=== PATIENT | female | born 1945 | race Caucasian/White ===

== ENCOUNTER → 2017-11-05 | Outpatient (CLI) | payer MEDICARE ==
[~2017-11-05] MED LIST: AMLO2.5T PO; DIVA-76 PO; DOXY100C2 PO; ESTR0.5T PO; HYDR200T4 PO; LEVO125T11 PO; MEDR2.5T6 PO; ONDA4TAB10 PO; PANT40TA25 PO; PRED5TAB PO; PRIM50TA29 PO; SUCR1TAB2 PO; TRAM50TA4 PO
== END | disposition home or self-care (01) ==
LOC: LAB 14:35
PROVIDERS: ATTEND Student in an Organized Health Care Education/Training Program
DX: G43.109 Migraine with aura, not intractable, without status migrainosus (principal)
CPT/HCPCS: 36415; 82565; 84520

== ENCOUNTER → 2017-11-14 | Outpatient (CLI) | payer MEDICARE ==
[~2017-11-14] MED LIST changes: +GADOBENATE DIMEGLUMINE 10 ML IV ONE
== END | disposition home or self-care (01) ==
LOC: RAH 07:25
PROVIDERS: ATTEND Student in an Organized Health Care Education/Training Program
DX: G31.9 Degenerative disease of nervous system, unspecified (principal)
CPT/HCPCS: 70553; A9577

== ENCOUNTER → 2017-12-11 | Outpatient (CLI) | payer OTHER ==
[~2017-12-11] MED LIST changes: -GADOBENATE DIMEGLUMINE 10 ML IV ONE
== END | disposition home or self-care (01) ==
LOC: OIH 13:22
PROVIDERS: ATTEND Internal Medicine Cardiovascular Disease
DX: Z13.6 Encounter for screening for cardiovascular disorders (principal)
CPT/HCPCS: 75571

== ENCOUNTER → 2018-06-06 | Outpatient (CLI) | payer MEDICARE ==
[~2018-06-06] VITALS: Ht 165.1 cm; Wt 51.7 kg
[~2018-06-06] MED LIST changes: -AMLO2.5T PO; +AMLO2.5T4 PO; +REGADENOSON 0.4 MG/5 ML PF SYG IVP SCH
== END | disposition home or self-care (01) ==
LOC: SHCH 07:31
PROVIDERS: ATTEND Internal Medicine Cardiovascular Disease
DX: R06.00 Dyspnea, unspecified (principal); I25.10 Atherosclerotic heart disease of native coronary artery without angina pectoris
CPT/HCPCS: 78452; 93017; 96374; A9500 ×2; J2785

== ENCOUNTER → 2018-06-12 | Outpatient (CLI) | payer MEDICARE ==
[~2018-06-12] MED LIST changes: +ALBUTEROL SULFATE 0.083% 2.5 MG/3 ML INH IH ONE; +AMLO2.5T3 PO; -AMLO2.5T4 PO; -REGADENOSON 0.4 MG/5 ML PF SYG IVP SCH
== END | disposition home or self-care (01) ==
LOC: RESP 10:03
PROVIDERS: ATTEND Internal Medicine Cardiovascular Disease
DX: R06.00 Dyspnea, unspecified (principal)
CPT/HCPCS: 94060; 94727; 94729

== ENCOUNTER → 2022-10-03 | Outpatient (CLI) | payer MEDICARE ==
[~2022-10-03] MED LIST changes: -ALBUTEROL SULFATE 0.083% 2.5 MG/3 ML INH IH ONE; -AMLO2.5T3 PO; +AMLO2.5T4 PO; -DOXY100C2 PO; +DOXY100C5 PO; -PANT40TA25 PO; +PANT40TA54 PO
== END | disposition home or self-care (01) ==
LOC: SHCH 07:33
PROVIDERS: ATTEND Internal Medicine Cardiovascular Disease
DX: I73.9 Peripheral vascular disease, unspecified (principal)
CPT/HCPCS: 93925

== ENCOUNTER 2023-01-26 06:56 | Day surgery (SDC) | payer MEDICARE ==
[2023-01-24 16:02] LABS: BASOPHILS % (AUTO) 1.3 % (0.0-5.0); EOSINOPHILS % (AUTO) 6.3 % (0.0-8.0); HEMATOCRIT 37.5 % (36-48); LYMPHOCYTES % (AUTO) 19.8 % (21.0-51.0); MEAN CORPUSCULAR HEMOGLOBIN 28.9 pg (27.0-33.0); MEAN CORPUSCULAR VOLUME 90.4 fL (79-99); NEUTROPHILS % (AUTO) 66.4 % (40.0-77.0); PLATELET COUNT (AUTO) 363 K/uL (130-400); RED BLOOD CELL COUNT(AUTO) 4.15 MIL/uL (4.00-5.50); RED CELL DISTRIBUTION WIDTH 13.6 % (11.0-15.5)
[2023-01-24 16:12] VITALS: BP 174/72
[2023-01-24 16:17] LABS: CREATININE 1.1 mg/dL (0.5-1.5)
[2023-01-24 16:18] LABS: INR 0.93 (0.85-1.15); PROTHROMBIN TIME 10.7 SEC (9.6-11.6)
[2023-01-24 16:19] LABS: PARTIAL THROMBOPLASTIN TIME 28.3 SEC (26.3-35.5)
[2023-01-24 16:33] LABS: B-TYPE NATRIURETIC PEPTIDE 694 pg/mL (0-100)
[2023-01-26] VITALS (14 sets, daily range): BP systolic 111–171; BP diastolic 60–93
[~2023-01-26] VITALS: Ht 165.1 cm; Wt 49.9 kg
[~2023-01-26 06:56] MED LIST changes: +ALBUHFA IH; -AMLO2.5T4 PO; +BACL5TAB PO; +BETA15C TP; +CALC-1125 PO; +CHOL100040 PO; +DIPH25CA85 PO; -DIVA-76 PO; +DOCU100T PO; -DOXY100C5 PO; -ESTR0.5T PO; +FIORIT PO; -HYDR200T4 PO; +HYDR200T75 PO; +LEVO112C4 PO; -LEVO125T11 PO; +LOSA25TA41 PO; -MEDR2.5T6 PO; +METO25TA6 PO; +MULT-1367 PO; -ONDA4TAB10 PO; +PRED1TAB PO; -PRED5TAB PO; -SUCR1TAB2 PO
[2023-01-26] MEDS ORDERED: 0.9%NACL 1000ML 1,000 ML IV ONE (07:26)
[2023-01-26 07:33] LABS: CREATININE 1.2 mg/dL (0.5-1.5); POTASSIUM 4.1 mmol/L (3.5-5.1)
[2023-01-26] MEDS ORDERED: NITROGLYCERIN 50MG VIAL ONE (08:56)
[2023-01-26] MEDS ORDERED: HEPARIN 10,000 UNIT/10ML (1,000 UNIT/ML) VIAL ONE (08:56)
[2023-01-26] MEDS ORDERED: LIDOCAINE HCL 400MG/20ML VIAL ONE (08:56)
[2023-01-26] MEDS ORDERED: IODIXANOL 320 MG/ML 100 ML VIAL ONE (08:56)
[2023-01-26] MEDS ORDERED: MIDAZOLAM HCL 1 MG/ML 2ML VIAL ONE ×2 (12:20→14:15)
[2023-01-26] MEDS ORDERED: FENTANYL CITRATE PF 50 MCG/1 ML 2ML VIAL ONE ×2 (12:21→14:15)
[2023-01-26] MEDS ORDERED: NICARDIPINE 25MG INJ IV ONE (13:42)
[2023-01-26] MEDS ORDERED: HYDRALAZINE 20MG/ML VIAL ONE (14:09)
[2023-01-26] MEDS ORDERED: ASPIRIN 325MG EC TAB PO ONE (14:28)
[2023-01-26] MEDS ORDERED: CLOPIDOGREL 300MG TAB ONE (14:28)
[2023-01-26] MEDS ORDERED: 0.9%NACL 1000ML 1,000 ML IV SCH (15:00)
[2023-01-26] MEDS ORDERED: ACETAMINOPHEN 325 MG TAB ONE (16:14)
[2023-01-26] MEDS ORDERED: ACETAMINOPHEN 325 MG TAB PO PRN (17:30)
[2023-01-26] MEDS ORDERED: ASPI-1012 PO (18:47)
== END 2023-01-26 19:17 | disposition home or self-care (01) ==
LOC: DAH 06:56
PROVIDERS: ATTEND Internal Medicine Cardiovascular Disease
DX: I70.211 Atherosclerosis of native arteries of extremities with intermittent claudication, right leg (principal); M35.00 Sjogren syndrome, unspecified; I73.00 Raynaud's syndrome without gangrene; I10 Essential (primary) hypertension; I25.10 Atherosclerotic heart disease of native coronary artery without angina pectoris; E78.5 Hyperlipidemia, unspecified; M06.9 Rheumatoid arthritis, unspecified; Z79.01 Long term (current) use of anticoagulants; Z88.8 Allergy status to other drugs, medicaments and biological substances; Z88.2 Allergy status to sulfonamides; Z95.5 Presence of coronary angioplasty implant and graft; Z87.891 Personal history of nicotine dependence; Z98.890 Other specified postprocedural states; Z90.49 Acquired absence of other specified parts of digestive tract; Z82.49 Family history of ischemic heart disease and other diseases of the circulatory system
CPT/HCPCS: 80048 ×2; 83880 ×2; 85025; 85610; 85730; 36415 ×2; 71045; 93005; 75716; 85347; C9766; C1887 ×2; C1725; C1894 ×2; C1769 ×4; C1760; C1893; C1724; C2623; J3010 ×2; J3490 ×3; J7030; J0360; J1644 ×3; J2250 ×2; Q9967; A4215; A4222; A4221; A4663; A4216; A4606; A4223 ×3; 99156; 99157

== ENCOUNTER → 2023-04-09 | Outpatient (CLI) | payer MEDICARE ==
[~2023-04-09] MED LIST changes: +ASPI-1012 PO
== END | disposition home or self-care (01) ==
LOC: OIH 10:18
PROVIDERS: ATTEND Physician Assistant Medical
DX: K59.00 Constipation, unspecified (principal); R93.3 Abnormal findings on diagnostic imaging of other parts of digestive tract
CPT/HCPCS: 74018

== ENCOUNTER → 2023-10-25 | Outpatient (CLI) | payer MEDICARE ==
[2023-10-25 12:46] LABS: CHOLESTEROL 253 mg/dL (<200); HDL CHOLESTEROL 58 mg/dL (35-85); LDL DIRECT 146 mg/dL (0-99); TRIGLYCERIDES 192 mg/dL (30-200)
== END | disposition home or self-care (01) ==
LOC: LAB 10:26
PROVIDERS: ATTEND Internal Medicine Cardiovascular Disease
DX: I10 Essential (primary) hypertension (principal)
CPT/HCPCS: 36415; 80061

== ENCOUNTER → 2023-12-07 | Outpatient (CLI) | payer MEDICARE ==
[2023-12-07 12:17] LABS: BASOPHILS # (AUTO) 0.13 K/uL (0.00-0.20); BASOPHILS % (AUTO) 1.4 % (0.0-5.0); EOSINOPHILS # (AUTO) 1.55 K/uL (0.00-0.70); EOSINOPHILS % (AUTO) 16.5 % (0.0-8.0); HEMATOCRIT 35.6 % (36-48); IMMATURE GRANULOCYTE ABSOLUTE 0.04 K/uL (0-1); LYMPHOCYTES # (AUTO) 1.3 K/uL (1.0-4.8); LYMPHOCYTES % (AUTO) 13.8 % (21.0-51.0); MEAN CORPUSCULAR HEMOGLOBIN 26.2 pg (27.0-33.0); MEAN CORPUSCULAR HGB CONC 30.9 g/dL (32.0-36.0); MEAN CORPUSCULAR VOLUME 84.8 fL (79-99); MONOCYTES # (AUTO) 0.5 K/uL (0.1-1.0); MONOCYTES % (AUTO) 5.8 % (3.0-13.0); NEUTROPHILS # (AUTO) 5.8 K/uL (1.8-7.7); NEUTROPHILS % (AUTO) 62.1 % (40.0-77.0); PLATELET COUNT (AUTO) 449 K/uL (130-400); RED CELL DISTRIBUTION WIDTH 24.5 % (11.0-15.5); WHITE BLOOD COUNT (AUTO) 9.4 K/uL (4.8-10.8)
[2023-12-07 12:28] LABS: INR <= 0.93 (0.85-1.15); PROTHROMBIN TIME 10.2 SEC (9.6-11.6)
[2023-12-07 12:29] LABS: PARTIAL THROMBOPLASTIN TIME 25.6 SEC (26.3-35.5)
[2023-12-07 12:33] LABS: CREATININE 1.3 mg/dL (0.5-1.0); POTASSIUM 4.6 mmol/L (3.5-5.1)
== END | disposition home or self-care (01) ==
LOC: LAB 08:49
PROVIDERS: ATTEND Internal Medicine Cardiovascular Disease
DX: I10 Essential (primary) hypertension (principal); I73.9 Peripheral vascular disease, unspecified; R00.2 Palpitations; R55 Syncope and collapse; R09.89 Other specified symptoms and signs involving the circulatory and respiratory systems; M35.00 Sjogren syndrome, unspecified; I73.00 Raynaud's syndrome without gangrene; E78.5 Hyperlipidemia, unspecified; Z95.818 Presence of other cardiac implants and grafts; Z79.899 Other long term (current) drug therapy
CPT/HCPCS: 36415; 80048; 85025; 85610; 85730

== ENCOUNTER → 2024-02-12 | Outpatient (CLI) | payer MEDICARE | END | disposition home or self-care (01) | LOC: SHCH 12:34 | PROVIDERS: ATTEND Internal Medicine Cardiovascular Disease | DX: I65.23 Occlusion and stenosis of bilateral carotid arteries (principal); I10 Essential (primary) hypertension; R00.2 Palpitations; R55 Syncope and collapse; E78.5 Hyperlipidemia, unspecified; I73.9 Peripheral vascular disease, unspecified; R09.89 Other specified symptoms and signs involving the circulatory and respiratory systems; M35.00 Sjogren syndrome, unspecified; I73.00 Raynaud's syndrome without gangrene; Z95.818 Presence of other cardiac implants and grafts | CPT/HCPCS: 93880 ==

== ENCOUNTER → 2024-05-13 | Outpatient (CLI) | payer MEDICARE | END | disposition home or self-care (01) | LOC: RAH 12:21 | PROVIDERS: ATTEND Internal Medicine | DX: J84.10 Pulmonary fibrosis, unspecified (principal); M47.815 Spondylosis without myelopathy or radiculopathy, thoracolumbar region; R05.3 Chronic cough | CPT/HCPCS: 71046 ==

== ENCOUNTER → 2024-06-10 | Outpatient (CLI) | payer MEDICARE ==
[2024-06-10 12:29] LABS: CHOLESTEROL 214 mg/dL (<200); HDL CHOLESTEROL 73 mg/dL (35-85); LDL DIRECT 107 mg/dL (0-99); TRIGLYCERIDES 229 mg/dL (30-200)
== END | disposition home or self-care (01) ==
LOC: LAB 09:58
PROVIDERS: ATTEND Internal Medicine Cardiovascular Disease
DX: E78.5 Hyperlipidemia, unspecified (principal)
CPT/HCPCS: 36415; 80061